=== PATIENT | female | born 1990 | race Caucasian/White ===

== ENCOUNTER 2019-01-24 05:40 | Observation (INO) | payer OTHER ==
[~2019-01-24] VITALS: Ht 165.1 cm; Wt 75.3 kg
[~2019-01-24 05:40] MED LIST: FLONASE; MULTIVITAMINS1 EAC7 PO; SUMATRIPTAN SUC25 MG PO; ZYRTEC10 M3 PO
[2019-01-24] MEDS ORDERED: LIDOCAINE 1% W/EPINEPHRINE 20 ML VIAL ONE (06:19)
--- NOTE | 2019-01-24 07:10 | NUR ---
RECEIVED REPORT FROM 7AM NURSE, ROUNDS DONE, PATIENT RESTING IN BED WITH HOB ELEVATED, DRESSING TO HER NECK AREA REMAIN INTACT. WILL CONTINUE TO MONITOR. CALL LIGHT IN REACH.
[2019-01-24] MEDS ORDERED: FENTANYL CITRATE/PF 100MCG/2 ML INJ ONE ×2 (09:59→19:24)
[2019-01-24] MEDS ORDERED: ONDANSETRON HCL INJ 2MG/ML 2ML 2 MG/ML VIAL ONE ×2 (10:01→19:09)
[2019-01-24] MEDS ORDERED: MORPHINE SULFATE INJ 4 MG/ML INJ 1ML ONE (11:15)
--- NOTE | 2019-01-24 11:22 | NUR ---
Patient transferred to unit from PACU. Patient is AAOx3. Post op right thyroidectomy. Medial incision to neck. Open to air. Closed with Dermabond. No c/o pain at this time. DIANE drain noted to left side of neck as well. Patient ambulates with assist. Lung sierra clear to auscultation. Bowel sounds present x4 but hypoactive. Bilateral SCD's in place. Left hand IV in place. IV fluids infusing at this time.
[2019-01-24 11:30] VITALS: BP 133/87
[2019-01-24 12:24] VITALS: BP 133/87
[2019-01-24] MEDS ORDERED: ONDANSETRON HCL INJ 2MG/ML 2ML 2 MG/ML VIAL IV PRN (12:30)
[2019-01-24] MEDS: D5.45%NS/KCL 20MEQ 1,000 ML IV SCH ×2 (12:45→20:45)
[2019-01-24] MEDS: CEFAZOLIN SOD 1 GM/NS 50ML 50 ML IV SCH ×2 (13:52→22:27)
[2019-01-24] MEDS: HYDROCODONE/APAP 5MG-325MG TAB PO PRN ×3 (13:52→23:30)
[2019-01-24 16:00] VITALS: BP 124/78
--- NOTE | 2019-01-24 16:53 | Operative Report ---
DATE OF PROCEDURE: 01/24/2019 SURGEON: Chuy Antonio MD PREOPERATIVE DIAGNOSIS: Enlarging right thyroid lobe nodule. POSTOPERATIVE DIAGNOSIS: Enlarging right thyroid lobe nodule. PROCEDURES: Right thyroid lobectomy and isthmusectomy with nerve integrity monitor (NIM) endotracheal tube. SIGNIFICANT FINDINGS: Enlarged right thyroid lobe nodule. Frozen section analysis revealed benign findings. LIBRARIAN SPECIAL COLLECTIONS: Lottie Isaacs MD. ANESTHESIA: General endotracheal tube anesthesia with NIM ET tube. SPECIMENS REMOVED: Right thyroid lobe. ESTIMATED BLOOD LOSS: 5 mL. COMPLICATIONS: None. INDICATIONS: The patient is a 28-year-old white female with known right thyroid lobe nodule since 2014. The right thyroid lobe nodule has been enlarging on multiple serial ultrasounds. Ultrasound-guided FNA biopsies of the right thyroid lobe nodule in 2014 and 2016 were reportedly benign. Exam reveals a 3-4 cm right thyroid lobe mass. CT of the neck performed on November 22, 2018 revealed asymmetrically enlarged right thyroid lobe measuring greater than 3 cm without adjacent lymphadenopathy. On examination, she has a 3-4 cm palpable right thyroid lobe mass. She is scheduled for right thyroid lobectomy (possible total thyroidectomy) with nerve integrity monitor (NIM) endotracheal tube for the treatment of enlarging right thyroid lobe nodule. Risks and complications of the procedures were thoroughly discussed with the patient. They include infection, bleeding, scarring, failure to improve, need for additional operations, possibility of malignancy and need for further treatment, poor external cosmetic appearance of the incision, damage to recurrent laryngeal nerve(s) causing permanent hoarseness, damage to the parathyroid glands causing permanent hypocalcemia and complications of hypocalcemia, damage to the pharyngeal lumen, chronic pain, need for blood transfusions, damage to surrounding nerves, blood vessels, and muscles. She fully understands and gives consent. DESCRIPTION OF PROCEDURE: The patient was taken to the operating room and placed supine on the operating table where general anesthesia was achieved through orotracheal intubation with the nerve integrity monitor (NIM) endotracheal tube. The electrodes for the NIM monitoring ET tube as well as the grounding electrodes were then attached to the nerve integrity monitor. Following this, 6 mL of 1% lidocaine with 1:100,000 epinephrine was injected along a natural skin crease 2 fingerbreadths superior to the clavicles. The neck was then prepped and draped in the usual sterile manner. Ancef antibiotics were administered in the operating room prior to incision. Approximately 7-cm incision was then made horizontally along the natural skin crease 2 fingerbreadths superior to the clavicles with a #15 blade. The incision was made past the platysmal layer. The skin flaps were then elevated superiorly, inferiorly, and laterally. The Kendall self-retaining retractor was then inserted. The midline raphe was then divided until the anterior surface of the thyroid isthmus could be seen. The overlying strap muscles were elevated off the right thyroid lobe until the thyroid lobe could be seen. Further dissection inferior to the thyroid lobe identified the recurrent laryngeal nerve as well as the inferior parathyroid gland. The recurrent laryngeal nerve was then followed superiorly until it entered the larynx inferior to the cricothyroid muscle. The superior pole of the right thyroid lobe was skeletonized. It was divided and cut with the Harmonic scalpel. The superior parathyroid was also seen. The right lobe was then released from its attachments taking care to keep the right recurrent laryngeal nerve in full view as well as the parathyroid glands. The mass was then removed by excising in the left-sided portion of the isthmus. This was sent for frozen section analysis, which revealed benign findings. No evidence of bleeding was seen with a Valsalva maneuver. The recurrent laryngeal nerve function was seen to be intact by stimulating with the probe attached to the nerve integrity monitor. The parathyroid glands were also seen to be intact. A DIANE drain was then inserted through a separate stab incision. The midline raphe was then sutured with interrupted 4-0 Monocryl. The platysmal layer and the subcutaneous layer were then repaired with interrupted 4-0 Monocryl. The subcuticular repair was then performed with interrupted 4-0 Monocryl followed by Dermabond. The patient was awakened in the operating room, extubated, and taken to the recovery room in good condition. MD Kg CarverKY/MODL /[id number] KYA
[2019-01-24] MEDS ORDERED: LIDOCAINE HCL 2% LOCAL INJ 5 ML SDV VIAL INJ ONE (19:09)
[2019-01-24] MEDS ORDERED: PROPOFOL IV EMULSION 10 MG/ML 20 ML VIAL ONE (19:09)
[2019-01-24] MEDS ORDERED: KETOROLAC TROMETHAMINE 30 MG/ML VIAL ONE (19:09)
[2019-01-24] MEDS ORDERED: SEVOFLURANE INHAL SOLN 250 ML PEN BTL ONE (19:09)
[2019-01-24] MEDS ORDERED: DEXAMETHASONE SOD PHOS INJ 4 MG/ML VIAL ONE (19:09)
[2019-01-24] MEDS ORDERED: SUCCINYLCHOLINE 200 MG/10 ML SYR ONE (19:09)
[2019-01-24] MEDS ORDERED: CEFAZOLIN SOD 1 GM VIAL ONE (19:09)
[2019-01-24] MEDS ORDERED: ROCURONIUM BROMIDE 10 MG/ML 5ML VIAL ONE (19:09)
[2019-01-24] MEDS ORDERED: MIDAZOLAM HCL 2 MG/2 ML VIAL ONE (19:24)
[2019-01-24 19:44] VITALS: BP 124/78
[2019-01-24 20:41] VITALS: BP 127/79
[2019-01-24 22:28] VITALS: BP 127/79
[2019-01-25 00:51] VITALS: BP 140/65
[2019-01-25] MEDS: HYDROCODONE/APAP 5MG-325MG TAB PO PRN ×2 (03:58→10:10)
[2019-01-25 04:34] VITALS: BP 139/87
[2019-01-25] MEDS: D5.45%NS/KCL 20MEQ 1,000 ML IV SCH (04:45)
[2019-01-25] MEDS: CEFAZOLIN SOD 1 GM/NS 50ML 50 ML IV SCH (06:40)
--- NOTE | 2019-01-25 07:40 | NUR ---
MD LANE INTO SEE PT, DISCUSSED POC, REMOVED DRESSING AND DIANE DRAIN, 4X4 SECURED OVER DIANE INSERTION SITE, PT TOLERATED WELL
[2019-01-25 08:30] VITALS: BP 117/77
[2019-01-25 10:23] VITALS: BP 117/77
--- NOTE | 2019-01-25 11:18 | NUR ---
DISCHARGE INSTRUCTIONS REVIEWED WITH PT , VERBALIZED UNDERSTANDING, REFUSED WC, AMBULATED OFF UNIT FOR DISCHARGE, FAMILY AND PCT AT SIDE, NO CHANGE IN CONDITION
== END 2019-01-25 11:17 | disposition home or self-care (01) ==
LOC: OR 05:40 → PACU V 10:02 → MED/SURG 11:22
PROVIDERS: ADMIT Otolaryngology; ATTEND Otolaryngology
DX: E04.1 Nontoxic single thyroid nodule (principal); E06.3 Autoimmune thyroiditis; Z91.048 Other nonmedicinal substance allergy status
CPT/HCPCS: 60210; 81025; 88307; 88331; G0378 ×2; J0690 ×3; J1100; J1885; J2001; J2250; J2270; J2405; J2704